=== PATIENT | male | born 1975 | race Caucasian/White ===

== ENCOUNTER 2023-09-06 14:42 | Emergency (ER) | payer BC ==
[~2023-09-06 14:42] MED LIST: SULFAMETH; TRIM
[2023-09-06 15:00] VITALS: BP_SYST 146; PULSE 80; O2SAT 96
[2023-09-06] MEDS ORDERED: KETOROLAC TROMETHAMINE 60 MG/2 ML VIAL IM ONE (15:00)
[2023-09-06 15:36] LABS: BASOPHILS % (AUTO) 0.5 % (0.0-2.0); EOSINOPHILS # (AUTO) 0.2 K/uL (0.0-0.4); EOSINOPHILS % (AUTO) 2.1 % (0.0-4.0); HEMATOCRIT 45.8 % (36-54); HEMOGLOBIN 15.7 g/dL (14.0-18.0); LYMPHOCYTES # (AUTO) 2.1 K/uL (1.0-5.5); LYMPHOCYTES % (AUTO) 29.5 % (20.5-51.5); MEAN CORPUSCULAR HEMOGLOBIN 30 pg (27-31); MEAN CORPUSCULAR HGB CONC 34 % (32-36); MEAN CORPUSCULAR VOLUME 86 fL (79.0-98.0); MONOCYTES # (AUTO) 0.7 K/uL (0.0-1.0); MONOCYTES % (AUTO) 9.6 % (1.7-9.3); NEUTROPHILS # (AUTO) 4.2 K/uL (1.8-7.7); NEUTROPHILS % (AUTO) 58.3 % (40.0-70.0); PLATELET COUNT (AUTO) 176 K/uL (130-430); RED BLOOD CELL COUNT(AUTO) 5.31 MIL/uL (4.2-6.2); RED CELL DISTRIBUTION WIDTH 13.5 % (9.0-15.0); WHITE BLOOD COUNT (AUTO) 7.2 K/uL (4.8-10.8)
[2023-09-06 15:42] LABS: ACETONE, SERUM NEGATIVE (NEGATIVE)
[2023-09-06 15:47] LABS: ANION GAP 8 (5-15); CALCIUM 9.4 mg/dL (8.4-11.0); CARBON DIOXIDE 26 mmol/L (23-29); CHLORIDE 106 mmol/L (98-107); CREATININE 1.34 mg/dL (0.55-1.30); GFR AFRICAN AMERICAN 73 mL/min (>90); GLUCOSE 133 mg/dL (74-106); POTASSIUM 4.2 mmol/L (3.5-5.1); SODIUM SERUM 140 mmol/L (136-145); UREA NITROGEN, BLOOD 15 mg/dL (8-21)
[2023-09-06 15:48] LABS: INR 1.1 (0.80-1.20)
[2023-09-06 16:00] LABS: ALANINE AMINOTRANSFERASE 63 U/L (12-78); ALBUMIN 3.8 g/dL (3.4-4.8); AMYLASE 53 U/L (0-100); ASPARTATE AMINOTRANSFERASE 41 U/L (10-37); BILIRUBIN,DIRECT 0.1 mg/dL (0.0-0.3); LIPASE 27 U/L (16-77); TOTAL BILIRUBIN 0.4 mg/dL (0.0-1.0); TOTAL PROTEIN, SERUM 7.4 g/dL (6.4-8.3)
[2023-09-06] MEDS ORDERED: TRAM50TA2 PO (16:47)
[2023-09-06] MEDS ORDERED: IBUP-1969 PO (16:47)
[2023-09-06 17:15] VITALS: BP_SYST 146; PULSE 80; TEMP 98.2; O2SAT 96
== END 2023-09-06 17:15 | disposition home or self-care (01) ==
LOC: SED 14:42
DX: N20.0 Calculus of kidney (principal)
CPT/HCPCS: 99285; 74176; 80076; 80048; 82009; 82150; 83690; 85025; 85610; 85730; 36415; 76376; 96372; 83605; 82397; J1885